=== PATIENT | female | born 1945 | race Caucasian/White ===

== ENCOUNTER 2022-10-09 14:44 | Inpatient (IN) | payer OTHER ==
[~2022-10-09] VITALS: Ht 165.1 cm; Wt 63.5 kg
[~2022-10-09 14:44] MED LIST: CARB200T9 PO; CARI350T PO; HYDR-3974 PO; LEVO50TA8 PO; PENT100C9 PO; PHEN100C12 PO; PHEN100C4 PO
--- NOTE | 2022-10-09 14:50 | NUR ---
BIB [facility] FROM HOME, C/O WEAKNESS SINCE LAST NIGHT, RECENTLY HAD COVID VACCINE BOOSTER AND THEN GOT BRONCHITIS A WEEK AGO. PLACED IN BED, AAOX4, TACHYPNEIC RR- 33 SATURATING AT 98%RA.
[2022-10-09] MEDS ORDERED: predniSONE 20 MG TABLET ONE (14:59)
[2022-10-09] MEDS ORDERED: IPRATROPIUM NEB FS 0.5 MG/2.5 ML AMPUL.NEB NEB ONE (15:00)
[2022-10-09] MEDS ORDERED: predniSONE 20 MG TABLET PO ONE (15:00)
[2022-10-09] MEDS ORDERED: ALBUTEROL FS 2.5 MG/3 ML VIAL.NEB NEB ONE (15:00)
--- NOTE | 2022-10-09 15:00 | NUR ---
BLOOD DRAWN AND SENT TO LAB
[2022-10-09] MEDS ORDERED: ALBUTEROL FS 2.5 MG/3 ML VIAL.NEB ONE (15:12)
[2022-10-09] MEDS ORDERED: IPRATROPIUM NEB FS 0.5 MG/2.5 ML AMPUL.NEB ONE (15:12)
[2022-10-09 15:24] LABS: BASOPHILS % (AUTO) 0.3 % (0.0-2.0); HEMATOCRIT 40 % (33-45); HEMOGLOBIN 13.2 g/dL (11.5-14.8); LYMPHOCYTES # (AUTO) 0.7 K/uL (0.8-4.8); LYMPHOCYTES % (AUTO) 5.5 % (20.0-44.0); MEAN CORPUSCULAR HGB CONC 33 g/dl (31.0-36.0); MEAN CORPUSCULAR VOLUME 74 fL (82-100); MONOCYTES # (AUTO) 0.8 K/uL (0.1-1.30); NEUTROPHILS # (AUTO) 11.9 K/uL (1.8-8.9); NEUTROPHILS % (AUTO) 88.2 % (43.0-81.0); PLATELET COUNT (AUTO) 214 K/uL (150-450); RED BLOOD CELL COUNT(AUTO) 5.45 MIL/uL (4.0-5.2); WHITE BLOOD COUNT (AUTO) 13.5 K/uL (4.3-11.0)
[2022-10-09] MEDS ORDERED: ACETAMINOPHEN 325 MG TABLET ONE (15:26)
[2022-10-09 15:29] LABS: CARBON DIOXIDE 24 mmol/L (21-32); CHLORIDE 95 mmol/L (98-107); CREATININE 0.6 mg/dL (0.6-1.3); GLUCOSE 161 mg/dL (74-106); POTASSIUM 3.4 mmol/L (3.5-5.1); SODIUM SERUM 131 mmol/L (136-145); UREA NITROGEN, BLOOD 8 mg/dL (7-18)
[2022-10-09] MEDS ORDERED: ACETAMINOPHEN 325 MG TABLET PO ONE (15:30)
[2022-10-09 15:43] LABS: ALANINE AMINOTRANSFERASE 32 U/L (12-78); ALBUMIN 3.9 g/dL (3.4-5.0); ALKALINE PHOSPHATASE 178 U/L (46-116); ASPARTATE AMINOTRANSFERASE 29 U/L (15-37); BILIRUBIN,DIRECT 0.2 mg/dL (0.0-0.2); BILIRUBIN,TOTAL 0.6 mg/dL (0.2-1.0)
[2022-10-09] MEDS ORDERED: POTASSIUM CHLORIDE 20 MEQ TAB.PRT.SR PO ONE ×2 (15:59→16:00)
[2022-10-09] MEDS: Magnesium 1GM/D5W 100ML PREMIX 100 ML IV SCH ×2 (16:30→19:00)
[2022-10-09] MEDS ORDERED: IV NS 0.9% 250 ML IV ONE (17:15)
[2022-10-09] MEDS ORDERED: IOHEXOL-300 100 ML VIAL IV ONE (17:15)
[2022-10-09 17:29] LABS: BAND % (MANUAL) 8 % (0.0-5.0); LYMPHOCYTES % (MANUAL) 4 % (16-48); MONOCYTES % (MANUAL) 5 % (0-11.0); NEUTROPHILS % (MANUAL) 83 (42-76)
[2022-10-09] MEDS ORDERED: LEVOFLOXACIN 750 MG /D5W 150ML PIGGYBACK IV ONE (19:00)
[2022-10-09] MEDS ORDERED: FLUCONAZOLE IN NS 100 MG in PREMIX 1 EA IV SCH ×2 (19:00)
[2022-10-09] MEDS ORDERED: ZOLP10TA2 PO (19:09)
[2022-10-09] MEDS ORDERED: GEMTESA PO (19:09)
[2022-10-09] MEDS ORDERED: HYDR-4303 PO (19:09)
[2022-10-09] MEDS ORDERED: POLY15DR17 EACHEYE (19:09)
[2022-10-09] MEDS ORDERED: LEVOFLOXACIN 750 MG /D5W 150ML 0 ML IV ONE (19:16)
[2022-10-09] MEDS ORDERED: PSEUDOEPHEDRINE HCL 30 MG TABLET PO ONE (19:30)
[2022-10-09] MEDS ORDERED: CEFTRIAXONE 1GM BAG (ER ONLY) 50 ML IV ONE (19:59)
[2022-10-09] MEDS ORDERED: CEFTRIAXONE 1GM BAG (ER ONLY) 1 GM/50 ML PIGGYBACK IV ONE (20:00)
--- NOTE | 2022-10-09 20:38 | NUR ---
COVID ANTIGEN COLLECTED AND SENT TO LAB
--- NOTE | 2022-10-09 20:58 | NUR ---
PT ACCEPTED TO [facility] WITH DR. SILVA
[2022-10-09] MEDS ORDERED: PHENAZOPYRIDINE HCL 200 MG TABLET PO ONE (21:30)
[2022-10-10] VITALS: BP 153/82; TEMP 97
--- NOTE | 2022-10-10 01:45 | NUR ---
VERBAL AUTH RECEIEVED, NO AVAILABLE BEDS AVAILABLE UNTIL AFTER CHANGE OF SHIFT
[2022-10-10] MEDS ORDERED: FLUCONAZOLE IN NS 100 MG in PREMIX 1 EA IV SCH ×4 (02:30→09:00)
[2022-10-10] MEDS ORDERED: ACETAMINOPHEN 325 MG TABLET PO PRN (02:30)
[2022-10-10] MEDS ORDERED: ONDANSETRON HCL/PF 4 MG/2 ML VIAL IVP PRN (02:30)
[2022-10-10] MEDS ORDERED: CARISOPRODOL 350 MG TABLET PO PRN (02:30)
[2022-10-10] MEDS ORDERED: POLYVINYL ALCOHOL 15 ML BOTTLE OP ONE (02:30)
--- NOTE | 2022-10-10 03:25 | NUR ---
REPORT GIVEN TO KONRAD GIBBONS RN FOR MYESHA
[2022-10-10 04:00] VITALS: BP 153/82; TEMP 97
--- NOTE | 2022-10-10 04:00 | NUR ---
PT TRANSPORTED TO ROOM 110 W/ ACLS PROTOCOL
--- NOTE | 2022-10-10 04:05 | NUR ---
TELE OPENING NOTES ADMITTED A 76Y/O FEMALE A/O X3 ON 2 LITERS OF 02 VIA NC ,WITH ADMITTING DX OF PNA ,NO SOB NO DISTRESS NOTED ON SR ON THE MONITOR . DUE MEDS GIVEN , ALL NEEDS ATTENDED TOO CALL LIGHT WITHIN REACH , all needs attended too, awith right ac g 20 ivf og ns at 75cc/hr ,pts on regular diet WILL ENDORSE TO RN DAY SHIFT FOR CONTINUITY OF CARE.
[2022-10-10] MEDS: IV NS 0.9% 1,000 ML IV PRN ×2 (04:15→16:42)
[2022-10-10] MEDS: CARBAMAZEPINE 200 MG TABLET PO SCH ×3 (05:05→16:49)
[2022-10-10] MEDS: PHENYTOIN EXTENDED RELEASE 100 MG CAPSULE PO SCH ×3 (05:05→17:29)
[2022-10-10] MEDS: ENOXAPARIN SODIUM 40 MG/0.4 ML DISP.SYRIN SQ SCH (05:07)
--- NOTE | 2022-10-10 07:47 | NUR ---
RN NOTE PATIENTS HOME MEDICATIONS, IN BLUE CIRCULAR CONTAINER, GIVEN TO PHARMACY.
[2022-10-10 08:00] VITALS: BP 150/86; TEMP 99.6
[2022-10-10] MEDS ORDERED: PENTOSAN POLYSULFATE SODIUM 200 MG PO SCH (09:00)
[2022-10-10] MEDS ORDERED: CEFTRIAXONE 1 G in IV D5W 50 ML IV SCH (09:00)
[2022-10-10 12:00] VITALS: BP 133/82; TEMP 98.7
[2022-10-10 16:00] VITALS: BP 130/80; TEMP 98.1
[2022-10-10] MEDS: HYDROCODONE/APAP 5/325MG TABLET PO PRN (17:29)
[2022-10-10] MEDS: CEFTRIAXONE 1 G in IV D5W 50 ML IV SCH (17:29)
[2022-10-10 18:18] LABS: BILIRUBIN,URINE NEGATIVE (NEGATIVE); COLOR,URINE YELLOW (YELLOW); LEUKOCYTE ESTERASE ,URINE NEGATIVE (NEGATIVE); NITRITE, URINE NEGATIVE (NEGATIVE); PROTEIN,URINE NEGATIVE (NEGATIVE); UGLUCOSE NEGATIVE (NEGATIVE); UROBILINOGEN,URINE 0.2 EU/dL (0.2)
[2022-10-10 18:30] LABS: CREATININE, URINE 19.8 MG/DL (30.0-125.0); URINE SODIUM, RANDOM 43 mmol/l (40-220)
[2022-10-10 18:45] LABS: THYROID STIMULATING HORMONE < 0.007 uIU/mL (0.358-3.74)
[2022-10-10] MEDS: FLUCONAZOLE IN NS 100 MG in PREMIX 1 EA IV SCH ×2 (18:49)
[2022-10-10 18:51] LABS: BACTERIA,URINE None seen /HPF (None Seen); SQUAMOUS EPITHELIAL CELL,UR None Seen /HPF (None Seen); WBC,URINE 0-2 /HPF (0-3)
--- NOTE | 2022-10-10 19:42 | NUR ---
RN CLOSING NOTE PATIENT IS ALERT AND ORIENTED X4, USING BEDSIDE COMMODE WITH ASSISTANCE. PATIENT REFUSED TO PLACE PADS ON GUARD RAILS FOR SEIZURE PRECAUTIONS, KEPT AT BEDSIDE. BREATHING ON 2L NC 96 02 SAT. TELE READING SR HR 93. HOB ELEVATED AT 40 DEGREES, PRODUCTIVE COUGH. ASPIRATION PRECAUTIONS. IV ACCESS ON LW #20G RUNNING NS 75MLS/HR. IV ACCESS ON LAC #20G SL. BED LOCKED IN LOWEST POSITION, ALL SAFETY MEASURES IN PLACE, WILL ENDORSE CONTINUITY OF CARE TO PROFESSOR OF RELIGION NURSE.
[2022-10-10 20:00] VITALS: BP 146/83; TEMP 98.2
[2022-10-11] VITALS: BP 137/79; TEMP 98
[2022-10-11 04:00] VITALS: BP 131/69; TEMP 98
[2022-10-11] MEDS: IV NS 0.9% 1,000 ML IV PRN ×2 (06:48→19:10)
--- NOTE | 2022-10-11 06:59 | NUR ---
COMMERCIAL BAKER HELPER closing note PT resting in bed, in stable condition, breathing even and unlabored, 0 c/o pain, all due meds given per MD orders, tolerated well, all basic needs met and anticipated, all safety measures in place, call light with in reach, will continue to monitor
--- NOTE | 2022-10-11 07:10 | NUR ---
RN OPENING NOTE PATIENT AWAKE, ALERT AND ORIENTED X4, USING BEDSIDE COMMODE WITH ASSISTANCE. ON 2L NC, 96% 02 SAT. HOB ELEVATED AT 40 DEGREES, PRODUCTIVE COUGH. ASPIRATION PRECAUTIONS. IV ACCESS ON LW #20G RUNNING NS 75MLS/HR. IV ACCESS ON LAC #20G SL. BED LOCKED IN LOWEST POSITION, ALL SAFETY MEASURES IN PLACE, WILL CONTINUE TO MONITOR.
[2022-10-11 08:00] VITALS: BP 131/80; TEMP 98
[2022-10-11] MEDS: PHENYTOIN EXTENDED RELEASE 100 MG CAPSULE PO SCH ×2 (08:32→17:18)
[2022-10-11] MEDS: CARBAMAZEPINE 200 MG TABLET PO SCH ×2 (08:33→16:12)
[2022-10-11] MEDS: ENOXAPARIN SODIUM 40 MG/0.4 ML DISP.SYRIN SQ SCH (08:35)
--- NOTE | 2022-10-11 09:20 | NUR ---
SPUTUM FOR CULTURE COLLECTED, LABELED, PLACED IN A FRIDGE, LAB NOTIFIED.
[2022-10-11 12:17] VITALS: BP 130/70; TEMP 98.2
[2022-10-11 16:00] VITALS: BP 131/72; TEMP 98.1
[2022-10-11] MEDS: FLUCONAZOLE IN NS 100 MG in PREMIX 1 EA IV SCH ×2 (18:26)
[2022-10-11] MEDS: CEFTRIAXONE 1 G in IV D5W 50 ML IV SCH (18:26)
[2022-10-11] MEDS: HYDROCODONE/APAP 5/325MG TABLET PO PRN (18:33)
--- NOTE | 2022-10-11 19:23 | NUR ---
RN CLOSING NOTE PATIENT IS ALERT AND ORIENTED X4, USING BEDSIDE COMMODE WITH ASSISTANCE. ON 2L NC 96 02 SAT. HOB ELEVATED AT 40 DEGREES, PRODUCTIVE COUGH. ASPIRATION PRECAUTIONS. IV ACCESS ON LW #20G RUNNING NS 75MLS/HR. IV ACCESS ON LAC #20G SL. BED LOCKED IN LOWEST POSITION, ALL SAFETY MEASURES IN PLACE, WILL ENDORSE CONTINUITY OF CARE TO SERVICER COIN MACHINES NURSE.
[2022-10-11 20:00] VITALS: BP 135/60; TEMP 98.5
[2022-10-12] VITALS: BP 137/60; TEMP 98.4
[2022-10-12] MEDS: HYDROCODONE/APAP 5/325MG TABLET PO PRN ×2 (01:30→23:51)
[2022-10-12 04:00] VITALS: BP 130/72; TEMP 98
[2022-10-12 06:18] LABS: BASOPHILS % (AUTO) 0.4 % (0.0-2.0); EOSINOPHILS % (AUTO) 1.2 % (0.0-6.0); HEMATOCRIT 36 % (33-45); HEMOGLOBIN 11.7 g/dL (11.5-14.8); LYMPHOCYTES # (AUTO) 2.5 K/uL (0.8-4.8); LYMPHOCYTES % (AUTO) 22.5 % (20.0-44.0); MEAN CORPUSCULAR HGB CONC 33 g/dl (31.0-36.0); MEAN CORPUSCULAR VOLUME 75 fL (82-100); MONOCYTES # (AUTO) 1.1 K/uL (0.1-1.30); MONOCYTES % (AUTO) 9.8 % (2.0-12.0); NEUTROPHILS # (AUTO) 7.4 K/uL (1.8-8.9); NEUTROPHILS % (AUTO) 66.1 % (43.0-81.0); PLATELET COUNT (AUTO) 246 K/uL (150-450); RED BLOOD CELL COUNT(AUTO) 4.72 MIL/uL (4.0-5.2); WHITE BLOOD COUNT (AUTO) 11.1 K/uL (4.3-11.0)
[2022-10-12 06:30] LABS: CALCIUM, SERUM 8.5 mg/dL (8.5-10.1); CARBON DIOXIDE 23 mmol/L (21-32); CHLORIDE 105 mmol/L (98-107); CREATININE 0.5 mg/dL (0.6-1.3); GLUCOSE 99 mg/dL (74-106); MAGNESIUM 1.9 mg/dL (1.8-2.4); PHOSPHORUS 3.4 mg/dL (2.5-4.9); POTASSIUM 3.7 mmol/L (3.5-5.1); SODIUM SERUM 138 mmol/L (136-145); UREA NITROGEN, BLOOD 5 mg/dL (7-18)
--- NOTE | 2022-10-12 07:00 | NUR ---
RN OPENING NOTE PATIENT IS ALERT AND ORIENTED X4, USING BEDSIDE COMMODE WITH ASSISTANCE. ON 2L NC 96 02 SAT 95% WITH NO SOB, DISTRESS OR PAIN AT THIS MOMENT. HOB ELEVATED AT 40 DEGREES, PRODUCTIVE COUGH. ASPIRATION PRECAUTIONS. IV ACCESS ON LW #20G RUNNING NS 75MLS/HR LACTATED RINGERS, EMR ORDER IS FOR NS, PHARMACY WAS CALLED AND VERIFIED NS THE MD ORDER. LACTATED RINGERS STOOPED, NS WILL BE STARTED. IV ACCESS ON LAC #20G SL. ALL SAFETY MEASURES IN PLACE, BED IN LOWEST AND LOCKED POSITION, SIDE RAILS UP X2, CALL LIGHT AND TABLE WITHIN REACH. WILL CONTINUE TO MONITOR. Addendum: 10/12/22 at 0758 by KINGA PEREZ RN PATIENT CURRENTLY ON NS, NOT LACTATED RINGERS, RECEIVED REPORT FOR THE WRONG PATIENT.
[2022-10-12 08:00] VITALS: BP 123/73; TEMP 98.6
[2022-10-12] MEDS: CARBAMAZEPINE 200 MG TABLET PO SCH ×2 (08:18→17:05)
[2022-10-12] MEDS: ENOXAPARIN SODIUM 40 MG/0.4 ML DISP.SYRIN SQ SCH (08:19)
[2022-10-12] MEDS: PHENYTOIN EXTENDED RELEASE 100 MG CAPSULE PO SCH ×2 (08:20→17:06)
[2022-10-12 12:00] VITALS: BP 138/71; TEMP 98.9
[2022-10-12] MEDS: IV NS 0.9% 1,000 ML IV PRN (17:11)
[2022-10-12] MEDS: FLUCONAZOLE IN NS 100 MG in PREMIX 1 EA IV SCH ×2 (18:01)
--- NOTE | 2022-10-12 19:15 | NUR ---
RN OPENING NOTES RECEIVED PATIENT ON BED, AWAKE, A/O X 4 RESPIRATORY EVEN AND UNLABORED. NO SOB NOTED. PATIENT ABLE TO GO TO BEDSIDE COMMODE WITH ASSIST. AFEBRILE. NO S/S OF DISTRESS NOTED. PATIENT WITH LEFT WRIST # 20 AND RIGHT AC # 20 PERIPHERAL LINE, FLUSHED WITH NS NO S/S OF INFILTRATION NOTED. RUNNING WITH NS @ 75 ML/HR. ALL SAFETY MEASURE PROVIDED. BED IN LOWEST POSITION. LOCKED. CALL LIGHT WITH IN REACH
[2022-10-12 19:43] VITALS: BP 143/70; TEMP 97.6
[2022-10-12] MEDS: CEFTRIAXONE 1 G in IV D5W 50 ML IV SCH (19:43)
--- NOTE | 2022-10-12 19:47 | NUR ---
RN CLOSING NOTE PATIENT IS ALERT AND ORIENTED X4, USING BEDSIDE COMMODE WITH ASSISTANCE. ON 2L NC 02 SAT 95% WITH NO SOB, DISTRESS OR PAIN AT THIS MOMENT. HOB ELEVATED AT 40 DEGREES, PRODUCTIVE COUGH. ASPIRATION PRECAUTIONS. IV ACCESS ON LW #20G RUNNING NS AT 75ML/HR. IV ACCESS ON LAC #20G SL. ALL SAFETY MEASURES IN PLACE, BED IN LOWEST AND LOCKED POSITION, SIDE RAILS UP X2, CALL LIGHT AND TABLE WITHIN REACH. REPORT GIVEN TO CAR RENTAL SERVICE ATTENDANT NURSE FOR CONTINUING OF CARE.
[2022-10-12 20:00] VITALS: BP 134/72; TEMP 97.9
[2022-10-13] VITALS: BP 146/87; TEMP 97.8
[2022-10-13 04:00] VITALS: BP 143/80; TEMP 98.3
[2022-10-13 06:55] LABS: BASOPHILS # (AUTO) 0.1 K/uL (0.0-0.2); BASOPHILS % (AUTO) 0.5 % (0.0-2.0); EOSINOPHILS % (AUTO) 1.5 % (0.0-6.0); HEMATOCRIT 35 % (33-45); HEMOGLOBIN 11.6 g/dL (11.5-14.8); LYMPHOCYTES # (AUTO) 2.3 K/uL (0.8-4.8); LYMPHOCYTES % (AUTO) 21.4 % (20.0-44.0); MEAN CORPUSCULAR HGB CONC 34 g/dl (31.0-36.0); MEAN CORPUSCULAR VOLUME 77 fL (82-100); MONOCYTES % (AUTO) 9.6 % (2.0-12.0); NEUTROPHILS # (AUTO) 7.1 K/uL (1.8-8.9); PLATELET COUNT (AUTO) 269 K/uL (150-450); RED BLOOD CELL COUNT(AUTO) 4.49 MIL/uL (4.0-5.2); WHITE BLOOD COUNT (AUTO) 10.6 K/uL (4.3-11.0)
--- NOTE | 2022-10-13 07:35 | NUR ---
OUTSIDE SALES OPENING NOTE RECEIVED PATIENT AWAKE IN BED, ALERT AND ORIENTED X4, USING BEDSIDE COMMODE WITH ASSISTANCE. ON 2L NC 02, TOLERATING WELL, WITH NO SOB, DISTRESS OR PAIN AT THIS MOMENT. HOB ELEVATED. ASPIRATION PRECAUTIONS. IV ACCESS ON LW #20G RUNNING NS AT 75ML/HR. IV ACCESS ON RIGHT AC #20G SL. ON TELE MONITOR SR HR 71. ALL SAFETY MEASURES IN PLACE, BED IN LOWEST AND LOCKED POSITION, SIDE RAILS UP X2, CALL LIGHT AND TABLE WITHIN REACH. PLAN OF CARE CONTINUE.
[2022-10-13 07:51] LABS: CALCIUM, SERUM 8.6 mg/dL (8.5-10.1); CARBON DIOXIDE 25 mmol/L (21-32); CHLORIDE 104 mmol/L (98-107); CREATININE 0.5 mg/dL (0.6-1.3); GLUCOSE 96 mg/dL (74-106); MAGNESIUM 1.9 mg/dL (1.8-2.4); PHOSPHORUS 3.5 mg/dL (2.5-4.9); POTASSIUM 3.3 mmol/L (3.5-5.1); SODIUM SERUM 139 mmol/L (136-145); UREA NITROGEN, BLOOD 6 mg/dL (7-18)
[2022-10-13 08:00] VITALS: BP 147/82; TEMP 98.2
[2022-10-13] MEDS: PHENYTOIN EXTENDED RELEASE 100 MG CAPSULE PO SCH ×2 (08:12→17:23)
[2022-10-13] MEDS: CARBAMAZEPINE 200 MG TABLET PO SCH ×2 (08:12→16:59)
[2022-10-13] MEDS: ENOXAPARIN SODIUM 40 MG/0.4 ML DISP.SYRIN SQ SCH (08:13)
[2022-10-13] MEDS: IV NS 0.9% 1,000 ML IV PRN (10:09)
[2022-10-13] MEDS ORDERED: POTASSIUM CHLORIDE 20 MEQ TAB.PRT.SR PO SCH (11:00)
[2022-10-13 12:00] VITALS: BP 133/73; TEMP 97.9
[2022-10-13 16:00] VITALS: BP 142/70; TEMP 98.2
[2022-10-13] MEDS: FLUCONAZOLE IN NS 100 MG in PREMIX 1 EA IV SCH ×2 (18:33)
--- NOTE | 2022-10-13 19:30 | NUR ---
AQUACULTURAL WORKER SUPERVISOR OPENING NOTE RECEIVED PATIENT IN BED, ALERT AND ORIENTED X4, USING BEDSIDE COMMODE WITH ASSISTANCE. ON RA TOLERATING WELL 02 SAT >95% WITH NO SOB, DISTRESS OR PAIN AT THIS MOMENT. HOB ELEVATED AT 40 DEGREES, PRODUCTIVE COUGH NOTED, ASPIRATION PRECAUTIONS MAINTAINED. IV ACCESS ON L WRIST #20G RUNNING NS 75MLS/HR. ALL SAFETY MEASURES IN PLACE, BED IN LOWEST AND LOCKED POSITION, SIDE RAILS UP X2, CALL LIGHT AND TABLE WITHIN REACH. WILL CONTINUE TO MONITOR THROUGHOUT THE SHIFT.
[2022-10-13 20:00] VITALS: BP 151/73; TEMP 98
--- NOTE | 2022-10-13 20:06 | NUR ---
WIRE WEAVING LOOM SETTER CLOSING NOTE PATIENT AWAKE IN BED, ALERT AND ORIENTED X4, USING BEDSIDE COMMODE WITH ASSISTANCE.ON ROOM AIR, WITH NO SOB, DISTRESS OR PAIN AT THIS MOMENT. HOB ELEVATED. ASPIRATION PRECAUTIONS. IV ACCESS ON LW #20G RUNNING NS AT 75ML/HR. IV ACCESS ON RIGHT AC #20G SL. ON TELE MONITOR SR HR 70'S. ALL SAFETY MEASURES IN PLACE, BED IN LOWEST AND LOCKED POSITION, SIDE RAILS UP X2, CALL LIGHT AND TABLE WITHIN REACH. ENDORSED TO NIGHT NURSE FOR MYESHA.
[2022-10-13] MEDS: CEFTRIAXONE 1 G in IV D5W 50 ML IV SCH (20:09)
[2022-10-14] VITALS: BP 157/76; TEMP 98.2
[2022-10-14] MEDS ORDERED: ZOLPIDEM TARTRATE 10 MG TABLET PO PRN (02:30)
[2022-10-14 04:00] VITALS: BP 155/70; TEMP 98.5
[2022-10-14] MEDS: IV NS 0.9% 1,000 ML IV PRN (04:38)
--- NOTE | 2022-10-14 06:37 | NUR ---
CHIP UNLOADER CLOSING NOTE PATIENT REMAINS IN BED, ALERT AND ORIENTED X4, USING BEDSIDE COMMODE WITH ASSISTANCE. ON RA TOLERATING WELL 02 SAT >95% WITH NO SOB, DISTRESS OR PAIN AT THIS MOMENT. ON TELEMONITOR CURRENTLY READING SR AT 86, ASPIRATION PRECAUTIONS MAINTAINED. IV ACCESS ON L WRIST #20G RUNNING NS 75MLS/HR. ALL SAFETY MEASURES IN PLACE, BED IN LOWEST AND LOCKED POSITION, SIDE RAILS UP X2, CALL LIGHT AND TABLE WITHIN REACH. ALL DUE MEDS GIVEN, KEPT DRY AND CLEAN, WILL ENDORSE TO AM SHIFT NURSE FOR CONTINUITY OF CARE.
[2022-10-14 06:58] LABS: BASOPHILS # (AUTO) 0.1 K/uL (0.0-0.2); BASOPHILS % (AUTO) 0.7 % (0.0-2.0); EOSINOPHILS % (AUTO) 1.6 % (0.0-6.0); HEMATOCRIT 35 % (33-45); LYMPHOCYTES # (AUTO) 2.2 K/uL (0.8-4.8); LYMPHOCYTES % (AUTO) 20.4 % (20.0-44.0); MEAN CORPUSCULAR HGB CONC 35 g/dl (31.0-36.0); MEAN CORPUSCULAR VOLUME 80 fL (82-100); MONOCYTES # (AUTO) 0.9 K/uL (0.1-1.30); MONOCYTES % (AUTO) 8.4 % (2.0-12.0); NEUTROPHILS # (AUTO) 7.3 K/uL (1.8-8.9); NEUTROPHILS % (AUTO) 68.9 % (43.0-81.0); PLATELET COUNT (AUTO) 313 K/uL (150-450); RED BLOOD CELL COUNT(AUTO) 4.31 MIL/uL (4.0-5.2); WHITE BLOOD COUNT (AUTO) 10.6 K/uL (4.3-11.0)
[2022-10-14 07:27] LABS: CALCIUM, SERUM 8.9 mg/dL (8.5-10.1); CARBON DIOXIDE 23 mmol/L (21-32); CHLORIDE 104 mmol/L (98-107); CREATININE 0.5 mg/dL (0.6-1.3); GLUCOSE 101 mg/dL (74-106); MAGNESIUM 1.8 mg/dL (1.8-2.4); PHOSPHORUS 3.5 mg/dL (2.5-4.9); POTASSIUM 3.5 mmol/L (3.5-5.1); SODIUM SERUM 139 mmol/L (136-145); UREA NITROGEN, BLOOD 6 mg/dL (7-18)
--- NOTE | 2022-10-14 07:27 | NUR ---
MEDICAL LIBRARY ASSISTANT OPENING NOTE RECEIVED PATIENT AWAKE IN SLEEPING, EASILY TO AROUSED. ALERT AND ORIENTED X4, USING BEDSIDE COMMODE WITH ASSISTANCE. ON ROOM AIR, TOLERATING WELL, WITH NO SOB, DISTRESS OR PAIN AT THIS MOMENT. HOB ELEVATED. ASPIRATION PRECAUTIONS. IV ACCESS ON LW #20G RUNNING NS AT 75ML/HR. IV ACCESS ON RIGHT AC #20G SL. ON TELE MONITOR SR HR 70'S. ALL SAFETY MEASURES IN PLACE, BED IN LOWEST AND LOCKED POSITION, SIDE RAILS UP X2, CALL LIGHT AND TABLE WITHIN REACH. PLAN OF CARE CONTINUE.
[2022-10-14 08:00] VITALS: BP 156/76; TEMP 98.3
[2022-10-14] MEDS: CARBAMAZEPINE 200 MG TABLET PO SCH (08:18)
[2022-10-14] MEDS: PHENYTOIN EXTENDED RELEASE 100 MG CAPSULE PO SCH (08:18)
[2022-10-14] MEDS: ENOXAPARIN SODIUM 40 MG/0.4 ML DISP.SYRIN SQ SCH (08:20)
[2022-10-14] MEDS ORDERED: METH4TAB17 PO (11:41)
[2022-10-14] MEDS ORDERED: AMOX-430 PO (11:41)
--- NOTE | 2022-10-14 14:00 | NUR ---
DISCHARGE INSTRUCTIONS REVIEWED WITH THE PATIENT, CONFIRMED UNDERSTANDING, UPDATED PHARMACY OF CHOICE. PATIENT SIGNED ALL PAPER WORKS AND INVENTORY LIST. RELEASED ALL PERSONAL BELONGINGS TO THE PATIENT AND PATIENTS HOME MEDICATIONS. RELEASED ALL DISCHARGED PAPER WORKS. PATIENT IS PICKED UP BY AMBULANCE VIA GURNEY.
== END 2022-10-14 14:48 | disposition home or self-care (01) | DRG 871 ==
LOC: ER 15:00 → TELE1 10-10 02:57 → MEDSG1 10-14 09:05
PROVIDERS: ADMIT Internal Medicine; ATTEND Nurse Practitioner Acute Care
DX: A41.9 Sepsis, unspecified organism (principal); J12.9 Viral pneumonia, unspecified; J96.01 Acute respiratory failure with hypoxia; E87.1 Hypo-osmolality and hyponatremia; J21.9 Acute bronchiolitis, unspecified; J47.0 Bronchiectasis with acute lower respiratory infection; Z20.822 Contact with and (suspected) exposure to COVID-19; E86.0 Dehydration; E87.6 Hypokalemia; Z87.891 Personal history of nicotine dependence; G40.909 Epilepsy, unspecified, not intractable, without status epilepticus; F41.9 Anxiety disorder, unspecified; R74.8 Abnormal levels of other serum enzymes; F32.9 Major depressive disorder, single episode, unspecified; R91.8 Other nonspecific abnormal finding of lung field; I34.81 Nonrheumatic mitral (valve) annulus calcification
CPT/HCPCS: 36415; 71045-TC; 71260-TC; 80048-TC; 80076-TC; 81001; 82533; 82570-TC; 83605-TC; 83735-TC; 83880; 84100-TC; 84300-TC; 84439-TC; 84443-TC; 84481; 84484-TC; 85025-TC; 85378-TC; 86480; 86803; 87040-TC; 87081-TC; 87806; A4216; A4223; C9803; G0378; J0696; J1450; J1650; J1956; J3475; J7030; J7050; J7060; Q9967

== ENCOUNTER → 2023-09-21 | Emergency (ER) | payer BC, OTHER ==
[~2023-09-21] VITALS: Ht 165.1 cm; Wt 56.7 kg
[~2023-09-21] MED LIST changes: +ACETAMINOPHEN 325 MG TABLET ONE; +ACETAMINOPHEN W/ CODEINE#3 1 EA TABLET ONE; +AMOX-430 PO; +GEMTESA PO; -HYDR-3974 PO; +HYDR-4303 PO; +KETOROLAC TROMETHAMINE INJ 30 MG/ML VIAL ONE; -LEVO50TA8 PO; +LIDOCAINE 5% (PATCH) 1 EA PATCH TP ONE; +METH4TAB17 PO; +POLY15DR17 EACHEYE; +ZOLP10TA2 PO
[2023-09-21] MEDS: LIDOCAINE 5% (PATCH) 1 EA PATCH TP SCH (12:47)
[2023-09-21] MEDS: KETOROLAC TROMETHAMINE INJ 30 MG/ML VIAL IM ONE (12:47)
[2023-09-21] MEDS: ACETAMINOPHEN 325 MG TABLET PO ONE (12:48)
[2023-09-21] MEDS: ACETAMINOPHEN W/ CODEINE#3 1 EA TABLET PO ONE (14:04)
[2023-09-21 14:25] VITALS: BP 115/61; TEMP 98.1; O2SAT 97
== END | disposition left against medical advice (07) ==
LOC: ER 11:01
DX: M54.50 Low back pain, unspecified (principal); Z87.19 Personal history of other diseases of the digestive system; F10.10 Alcohol abuse, uncomplicated; Z87.39 Personal history of other diseases of the musculoskeletal system and connective tissue; Z88.8 Allergy status to other drugs, medicaments and biological substances; Z60.2 Problems related to living alone; Y90.9 Presence of alcohol in blood, level not specified
CPT/HCPCS: 99283; 96372; J1885